=== PATIENT | female | born 1975 | race Asian ===

== ENCOUNTER 2018-07-06 17:20 | Emergency (ER) | payer OTHER ==
[~2018-07-06] VITALS: Ht 154.9 cm; Wt 62.6 kg
[2018-07-06 17:50] VITALS: BP_SYST 108
[2018-07-06 18:24] LABS: BASOPHILS # (AUTO) 0.1 K/uL (0.0-0.2); BASOPHILS % (AUTO) 0.8 % (0.0-2.0); EOSINOPHILS # (AUTO) 0.1 K/uL (0.0-0.4); EOSINOPHILS % (AUTO) 1.6 % (0.0-4.0); HEMATOCRIT 37.7 % (36-48); HEMOGLOBIN 12.8 g/dL (12.0-16.0); LYMPHOCYTES # (AUTO) 1.8 K/uL (1.0-5.5); MEAN CORPUSCULAR HEMOGLOBIN 32 pg (27-31); MEAN CORPUSCULAR HGB CONC 34 % (32-36); MEAN CORPUSCULAR VOLUME 93 fL (79.0-98.0); MONOCYTES # (AUTO) 0.6 K/uL (0.0-1.0); MONOCYTES % (AUTO) 9.6 % (1.7-9.3); PLATELET COUNT (AUTO) 242 K/uL (130-430); RED BLOOD CELL COUNT(AUTO) 4.06 MIL/uL (4.2-6.2); RED CELL DISTRIBUTION WIDTH 13.9 % (9.0-15.0); WHITE BLOOD COUNT (AUTO) 6.6 K/uL (4.8-10.8)
--- NOTE | 2018-07-06 20:40 | NUR ---
Pt placed to ER bed 08. Report given to KOURTNEY Baker.
[2018-07-06 20:45] VITALS: BP_SYST 108
--- NOTE | 2018-07-06 20:45 | NUR ---
2044 - Pt c/o bright red vaginal bleeding since this afternoon. Pt describes as moderate to heavy flow period. pt denies cramping or pain at this time. A&OX4, vss.
--- NOTE | 2018-07-06 21:00 | NUR ---
2100 - Chaperoned with Dr. Barnes during pelvic exam. Pt to be discharged.
--- NOTE | 2018-07-06 21:32 | NUR ---
2131 - Patient given written and verbal discharge instructions and verbalizes understanding. ER MD discussed with patient the results and treatment provided. Patient in stable condition. ID arm band removed. Patient educated on pain management and to follow up with PMD. Pain Scale0 . Opportunity for questions provided and answered. Medication side effect fact sheet provided. Addendum: 07/06/18 at 2135 by [email or web address] 2131 - Pt left prior to receiving DC paperwork. Pt was instructed at time of pelvic exam to see her doctor in 2 days for repeat blood levels, and if unable to be seen by OBGYN to come back to ED for repeat blood levels.
== END 2018-07-06 21:32 | disposition home or self-care (01) ==
LOC: SED 17:20
DX: O20.0 Threatened abortion (principal); R03.0 Elevated blood-pressure reading, without diagnosis of hypertension
CPT/HCPCS: 36415; 76801; 76817; 84702-TC; 85025; 86900; 86901; 99284